=== PATIENT | male | born 1995 | race Caucasian/White ===

== ENCOUNTER 2023-02-11 17:53 | Emergency (ER) | payer BC, MEDICAID, SELFPAY ==
--- NOTE | ~2023-02-11 | XR_ITS ---
EXAM: XR hand RT min 3V DATE: 02/11/2023 19:37 HISTORY: 3rd digit flexor tenosynovitis . COMPARISON: None available. FINDINGS: Normal mineralization. No fracture or dislocation. No lytic or blastic lesion. Joint space s are maintained. No erosion or periosteal change. Soft tissue swelling over the third digit. IMPRESSION: No acute osseous finding in the right hand. Reviewed, dictated and finalized at location K.
[2023-02-11 18:06] VITALS: BP 145/84; PULSE 120; RESP 18; TEMP 36.9; O2SAT 100
[2023-02-11] MEDS: SODIUM CHLORIDE 0.9% IV 2,000 ML 999 ML IV CONT (20:02)
[2023-02-11] MEDS: AMPICILLIN SULB 3 GM/NS 100 ML 3 GM/100 ML VIAL IVPB (20:02)
--- NOTE | 2023-02-11 20:03 | ED.GENADULT ---
HPI - General Adult General Chief complaint: Extremity Problem,Nontraumatic Stated complaint: right middle finger swelling Time Seen by Provider: 02/11/23 18:58 History of Present Illness HPI narrative: This is a 28-year-old IV fentanyl user presenting ED with a swollen digit. Patient injected fentanyl into his 3rd digit on the right hand approximately 5 days ago. Since then he has had significant swelling, discoloration and pain in the digit. He denies fever chills nausea vomiting or diarrhea. Patient is a current fentanyl user and goes through withdrawal. Related Data Allergies Allergy/AdvReac Type Severity Reaction Status Date / Time sulfamethoxazole Allergy Verified 09/16/12 12:45 trimethoprim Allergy Verified 09/16/12 12:45 [facility] Past Medical History Medical History IV drug abuse Opiate abuse, continuous Exam Narrative: APPEARANCE: No apparent distress. Head: atraumatic. EYES: EOMI, NOSE: Atraumatic NECK: Trachea midline RESPIRATORY: No increased rate of breathing CARDIOVASCULAR: RRR, ABDOMINAL: Non-distended MUSCULOSKELETAl: Focal exam of the right extremity reveals diffuse of form 3rd digit with dusky discoloration and pain on both flexion and extension. Cap refills greater than 3 seconds. Sensation light touch is decreased. NEURO: Alert. Moving 4/4 extremities SKIN:: Warm, dry. Normal color PSYCHIATRIC: Normal affect Course Vital Signs Vital signs: Vital Signs Temperature 98.4 F 02/11/23 18:06 Pulse Rate 120 H 02/11/23 18:06 Respiratory Rate 18 02/11/23 18:06 Blood Pressure 145/84 H 02/11/23 18:06 Pulse Oximetry 100 02/11/23 18:06 Oxygen Delivery Room Air 02/11/23 18:06 Temperature 98.4 F 02/11/23 18:06 Pulse Rate 120 H 02/11/23 18:06 Respiratory Rate 18 02/11/23 18:06 Blood Pressure 145/84 H 02/11/23 18:06 Pulse Oximetry 100 02/11/23 18:06 Oxygen Delivery Room Air 02/11/23 18:06 Medical Decision Making [facility] Narrative Medical decision making narrative: -Presentation: 28-year-old IV drug user presenting with a swollen dusky digit 5 days after injecting fentanyl -DDX includes but is not limited to: flexor tenosynovitis, soft tissue infection of the hand -Co-morbidities complicating care: IV drug use withdrawal symptoms -Social determinants of health: patient works in retail, 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 Hand x-ray showed soft tissue swelling. -Discussion of Management/Consultants: Dr. Pabon - Plastics, Dr. Valverde Hospitalist -Dx tests considered but not ordered: Lopez -Procedures: -Interventions: Vancomycin, ampicillin/sulbactam, [place] 5 mg x 2, 1 mg Ativan -Shared decision making / Disposition: patient was evaluated by Dr. Pabon. This time patient does not need emergent surgery. We offered admission for IV antibiotics and reassessment morning but the patient declined. He is concerned he will go in withdrawal. Patient will be given oral antibiotics and discharged with hand follow-up. -RX Augmentin, Doxycycline Vital Signs Vital Signs: Vital Signs Temperature 98.4 F 02/11/23 18:06 Pulse Rate 120 H 02/11/23 18:06 Respiratory Rate 18 02/11/23 18:06 Blood Pressure 145/84 H 02/11/23 18:06 Pulse Oximetry 100 02/11/23 18:06 Oxygen Delivery Room Air 02/11/23 18:06 Temperature 98.4 F 02/11/23 18:06 Pulse Rate 120 H 02/11/23 18:06 Respiratory Rate 18 02/11/23 18:06 Blood Pressure 145/84 H 02/11/23 18:06 Pulse Oximetry 100 02/11/23 18:06 Oxygen Delivery Room Air 02/11/23 18:06 Lab Data 02/11/23 20:06 02/11/23 20:06 Labs: Lab Results 02/11/23 Range/Units 20:06 WBC 9.0 (4.5-10.0) K/mm3 RBC 4.12 L (4.6-6.20) M/mm3 Hgb 12.3 L (14.0-18.0) g/dL Hct 37.7 L (42.
[2023-02-11 20:14] LABS: Basophils Percent Auto 0.3 % (0.2-1.2); Eosinophils Absolute Auto 0.1 K/mm3 (0-0.3); Eosinophils Percent Auto 0.7 % (0-4.4); Hematocrit 37.7 % (42.0-52.0); Hemoglobin 12.3 g/dL (14.0-18.0); Immature Granulocyte Absolute 0.02 K/mm3 (0.00-0.031); Immature Granulocyte Percent A 0.2 % (0-0.5); Lymphocytes Absolute Auto 1.16 K/mm3 (0.9-3.2); Lymphocytes Percent Auto 12.9 % (18.3-44.2); Mean Corpuscular HGB Conc 32.6 g/dl (32-36); Mean Corpuscular Hemoglobin 29.9 pg (26-34); Mean Corpuscular Volume 91.5 fl (80-100); Mean Platelet Volume 10.1 fl (7.4-10.4); Monocytes Absolute Auto 0.9 K/mm3 (0.1-0.6); Monocytes Percent Auto 10.4 % (2.6-8.5); Neutrophils Absolute Auto 6.8 K/mm3 (1.3-6.7); Neutrophils Percent Auto 75.5 % (45.5-73.1); Platelet Count Result 273 k/mm3 (150-375); Red Blood Count 4.12 M/mm3 (4.6-6.20); Red Cell Distribution Width 12.5 % (11.5-14.5)
[2023-02-11] MEDS: LORazepam (*CRX) 1 MG TABLET PO (20:20)
[2023-02-11] MEDS: HYDROcodone/acetaminophen (*CRX) 5-325 MG TABLET 2 TAB PO (20:21)
[2023-02-11 20:24] LABS: Lactic Acid Reflex 1.2 mmol/L (0.7-2.0)
[2023-02-11 21:00] VITALS: BP 140/87; PULSE 80; RESP 16; O2SAT 100
--- NOTE | 2023-02-11 21:00 | PM.IMCN ---
Assessment and Plan Assessment and plan (1) Discoloration of skin of finger: Code(s): L81.9 - Disorder of pigmentation, unspecified Status: Acute (2) Opiate abuse, continuous: Code(s): F11.10 - Opioid abuse, uncomplicated Status: Acute (3) IV drug abuse: Code(s): F19.10 - Other psychoactive substance abuse, uncomplicated Status: Acute Plan I was asked to see the patient in the ER and evaluate. The patient has discoloration and cool appearance to the middle finger of the right hand. Dr. Guerra was consulted by the ER provider in came to evaluate the patient. He feels patient's finger injury is due to probable arterial occlusion to some of the smaller vessels that the are in the distal finger that the patient likely accidentally injected into when he was trying to get high. He recommended the patient is a be placed on antibiotic therapy to also cover for possible infection. However patient is afebrile and does not have a white count. However the patient decided that he was going to leave the hospital. He was given oral antibiotics by the ER provider with Augmentin and doxy cyclin. The patient was encouraged to follow-up as outpatient. Patient verbalized understanding. The importance of cessation of opiate use was discussed with the patient. He states that he has actually underwent inpatient detox with IV sedation and such over a year ago and had a relapse about 7 months ago. He states that he is consciously trying to stop his drug use. He does report that he uses clean needles. However he a already has hepatitis C from his more risky behaviors when he was young. He does admit to also of smoking/snorted methamphetamines and or snorting cocaine on occasion. The importance of tobacco cessation was discussed with the patient as well. However this is not as important in the acute setting as is the cessation of opiate abuse. HPI Data of Consult Consult date: 02/12/23 Requesting Physician: Dr. Rogel Primary Care Provider: Nubia Segovia, Consult Narrative Narrative: Glenn Tesfaye is a 28 year old male with a past medical history of chronic IV drug use who presents to the ER due to right middle finger pain. The patient routinely index fentanyl 3 times a day. He tried to inject into the side of his finger about a week ago and had a small area of bruising. The next time he tried to inject the next day he went more proximal to his prior area and after he injected the area they entire finger from that point towards the tip had turned white. Over the next day and half to 2 days the finger turned purple was cold and painful. He was able to move the finger but it was swollen and stiff. He could extend the finger fully. He denies any fevers or chills. He denies any nausea or vomiting. He reports that he does not not injected get high anymore he injects just so he does not withdrawal. He reports that pain in the finger is 8/10 in intensity and is at dull aching throbbing but. He has never had a history of bloodstream infections, abscesses or endocarditis. He does have hepatitis C due to his prior drug use. Review of Systems Review of Systems: 12 systems were reviewed with pertinent positives and negatives per HPI. Except as documented in the HPI, all other systems were reviewed and are negative. He does tend towards having constipation with his chronic opiate use. He is currently feeling anxious and restless because it is about time for him to give himself another injection of opiates. [facility] Past Medical History Medical History (Updated 02/12/23 @ 07:01 by Meme Valverde DO) Hepatitis C IV drug abuse Opiate abuse, continuous Surgical History Surgical History (Updated 02/12/23 @ 07:01 by Meme Valverde DO) History of tonsillectomy and adenoidectomy History of tympanostomy tube placement Family History Family History (Updated 02/12/23 @ 07:02 by Meme Valverde DO)
--- NOTE | 2023-02-11 21:48 | WPDCN ---
Assessment and Plan Assessment and plan (1) Finger infection: Code(s): L08.9 - Local infection of the skin and subcutaneous tissue, unspecified Status: Acute Assessment and Plan: This is a 5-day-old self injection injury. There may be cellulitis causing the swelling and tenderness though there is no erythema. It appears there is some vascular compromise with venous congestion, possibly due to thrombosis. The skin, while purple in many areas, has not turned necrotic in the past 5 days. The patient does not show evidence of deep space infection. Recommend admission for IV antibiotics and re-evaluation in the morning. NPO after midnight If the patient goes AMA I would suggest seeing if he would take a prescription for antibiotics. HPI Data of Consult Date/Time: 02/11/23 21:48 Primary Care Provider: Nubia Segovia, Consult Narrative Reason for consult: Self injection injury to right iddle finger. Narrative: Glenn Tesfaye is a 28 year old male IV drug abuser who presents with pain and mottling of the right 3rd finger. he states that he injected the radial aspect of the middle phalanx with fentanyl Proximally 5 days ago. The finger has become mottled and tender. He says he injected himself a day or so before that in the same finger the similar area need already developed some purple mottling from that injection attempt. He admits to having some trouble accessing an appropriate vessel. he thinks the finger may have been a little darker in color a couple of days ago. He seems fairly comfortable as I interview in the emergency room. He is able the flex the finger about [address] his palm. Each joint seems to work equally well. He has full extension. The nail bed which is a blue espino color does devon easily with gentle finger pressure to the plate. The pad also blanches. The finger is not hot, there is no erythema, he is not tender to direct pressure over the flexor tendon of the proximal phalanx. . He states that he as had a history injected in his toes previously is familiar with the pain IV can have during this process. He says on this occasion he had to injected very slowly because of the pain. The white count is 9, CRP is pending, blood cultures pending, x-ray shows no foreign body or destructive process. The patient is receiving IV antibiotics as I speak to him. He started discussion about allowing him to be discharged and he would promise to show up in the morning. I told him he was free to go AMA if he wanted to and he could just show up tomorrow if he felt he still needed help. I explained this does not make it any easier to help him. He said he appreciated our help and did not want to make it harder. I told him I did not believe he needed any surgery tonight but that we would keep him NPO overnight in case we wanted to do something in the morning. Review of Systems Review of Systems: All systems reviewed & are unremarkable except as noted in HPI and below PMFSH Past Medical History Medical History IV drug abuse Opiate abuse, continuous Meds Home Medications and Allergies Home Medications Medication Instructions Recorded Confirmed Type amoxicillin 875 mg-potassium 1 tablet PO Q12H #20 tabs 02/11/23 Rx clavulanate 125 mg tablet doxycycline hyclate 100 mg capsule 100 mg PO BID #20 caps 02/11/23 Rx Allergies Allergy/AdvReac Type Severity Reaction Status Date / Time sulfamethoxazole Allergy Verified 09/16/12 12:45 trimethoprim Allergy Verified 09/16/12 12:45 Vital Signs Vital Signs - 24 hr 02/11/23 18:06 Temperature 98.4 F Pulse Rate 120 H Respiratory Rate 18 Blood Pressure 145/84 H Pulse Oximetry 100 Oxygen Delivery Room Air Exam Narrative: As above. Results Labs 02/11/23 20:06 02/11/23 20:06 Labs: Short CBC 01/22
[2023-02-11 22:49] VITALS: BP 143/84; PULSE 85; RESP 15; TEMP 37.3; O2SAT 100
[2023-02-11 22:59] LABS: CRP 2.6 mg/dL (<1.0)
[2023-02-11 23:26] LABS: Anion Gap 11 mmol/L (8-16); Blood Urea Nitrogen 16 mg/dL (9-20); Calcium 9.7 mg/dL (8.4-10.2); Carbon Dioxide 27 mmol/L (22-30); Chloride 100 mmol/L (98-107); Estimated CRCL calculation 171 ml/min; Estimated Glomerular Filt Rate > 60; Glucose 103 mg/dL (65-110); Potassium 4.5 mmol/L (3.4-5.0); Sodium 138 mmol/L (137-145)
[2023-02-11 23:50] LABS: Erythrocyte Sedimentation Rate 18 mm/hr (0-20)
== END 2023-02-11 22:50 | disposition home or self-care (01) ==
PROVIDERS: Emergency Provider Emergency Medicine; PCP Family Medicine
DX: F11.10 Opioid abuse, uncomplicated (principal); L08.9 Local infection of the skin and subcutaneous tissue, unspecified; M79.89 Other specified soft tissue disorders
CPT/HCPCS: 36415; 73130; 80048; 83605; 85025; 85652; 86140; 87040; 96365; 96366; 96368; 99284; A9270; J0295; J3370; J7030

== ENCOUNTER 2023-02-15 22:03 | Emergency (ER) | payer BC, MEDICAID, SELFPAY ==
--- NOTE | ~2023-02-15 | XR_ITS ---
PA, oblique, and lateral views of the right third finger CLINICAL HISTORY: Dislocation, swelling COMPARISON: 02/11/2023 FINDINGS: No fracture or dislocation seen. Osseous alignment is anatomic. Joint spaces are preserved. There is probable mild diffuse soft tissue swelling of the third digit. IMPRESSION: No osseous or articular abnormality. Probable diffuse soft tissue swelling of the third digit, nonspecific. Reviewed, dictated and finalized at location .
[2023-02-15 22:11] VITALS: BP 147/101; PULSE 132; RESP 17; TEMP 36.7; O2SAT 99
--- NOTE | 2023-02-16 00:14 | ED.UPPEXIN ---
HPI - Extremity Injury (Upper) General Chief Complaint: Extremity Injury, Upper Stated Complaint: finger swelling and bruising Time Seen by Provider: 02/15/23 23:57 Source: patient Mode of arrival: ambulatory Limitations: no limitations History of Present Illness HPI narrative: This is a 28 year old male that presents to the ER for right third finger pain and swelling. Ongoing over the last week and a half. Reports he injected Fentanyl into his finger. Reports extreme pain during injection and numbness and discoloration in the finger immediately after. He was evaluated in our ER 4 days ago. Plan was for admission for IV antibiotics and evaluation by Hand surgery. Patient ended up signing out AMA. He presents again tonight for evaluation due to persistent discoloration and pain. Reports decreased range of motion due to pain. Denies numbness. Related Data Allergies Allergy/AdvReac Type Severity Reaction Status Date / Time sulfamethoxazole Allergy Verified 09/16/12 12:45 trimethoprim Allergy Verified 09/16/12 12:45 Review of Systems Review of Systems: CONSTITUTIONAL: Denies fever SKIN: Reports discoloration and swelling MUSCULOSKELETAL: Reports joint pain, and myalgia. NEUROLOGIC: Denies numbness All systems reviewed & are unremarkable except as noted in HPI and below PMFSH Past Medical History Medical History (Updated 02/16/23 @ 00:45 by Yadira Mares PA-C) Hepatitis C IV drug abuse Opiate abuse, continuous Surgical History Surgical History (Updated 02/12/23 @ 07:01 by Meme Valverde DO) History of tonsillectomy and adenoidectomy History of tympanostomy tube placement Family History Family History (Updated 02/12/23 @ 07:02 by Meme Valverde DO) Sibling Hepatitis C IV drug abuse Social History Social History (Updated 02/12/23 @ 07:54 by Meme Valverde DO) Social History: He currently lives and works and [place]. 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 He comes to the [facility] to see is son on a daily basis. He has used IV drugs including heroin and fentanyl he has smoked a pack of cigarettes per day since he was 26 years old. He has been the present twice once for a couple of years and most recently was in [facility] for 6 years. Exam Narrative: GENERAL: Well-appearing, well-nourished, and in no acute distress. HEAD: Normocephalic, atraumatic. EYES: EOMI. CHEST: No respiratory distress. HEART: Tachycardic. Normal peripheral pulses. EXTREMITIES: Decreased active range of motion in the right 3rd finger with severe swelling noted. The distal phalanx is cold. The finger is purple. Normal sensation SKIN: Warm, dry, no rash. NEURO: No focal deficits. Alert and oriented x3. PSYCH: Normal mood and affect Course Course Emergency Course: Patient has decided he wants to leave AMA. He promises he will come back in the morning for evaluation by Hand surgery Vital Signs Vital signs: Vital Signs Temperature 98.0 F 02/15/23 22:11 Pulse Rate 132 H 02/15/23 22:11 Respiratory Rate 17 02/15/23 22:11 Blood Pressure 147/101 H 02/15/23 22:11 Pulse Oximetry 99 02/15/23 22:11 Oxygen Delivery Room Air 02/15/23 22:11 Temperature 98.0 F 02/15/23 22:11 Pulse Rate 119 H 02/16/23 00:30 Respiratory Rate 14 02/16/23 00:30 Blood Pressure 115/77 02/16/23 00:30 Pulse Oximetry 100 02/16/23 00:30 Oxygen Delivery Room Air 02/15/23 22:11 MDM - Extremity Injury (Upper) MDM Narrative Medical decision making narrative: Patient presents to the ER for discoloration and pain to the right third finger. History of IV drug abuse. Patient injected fentanyl into this finger a week and half ago. Severe swelling and purple discoloration of the finger noted. Decreased range of motion due to pain. His distal phalanx is cold. Patient was evaluated in our ER 4 days ago for same and plan was for admission for
[2023-02-16 00:30] VITALS: BP 115/77; PULSE 119; RESP 14; O2SAT 100
== END 2023-02-16 00:52 | disposition left against medical advice (07) ==
PROVIDERS: Emergency Provider Physician Assistant; PCP Family Medicine
DX: F11.10 Opioid abuse, uncomplicated (principal); R22.31 Localized swelling, mass and lump, right upper limb
CPT/HCPCS: 73140; 99283

== ENCOUNTER 2023-02-16 17:41 | Observation (INO) | payer BC, MEDICAID, SELFPAY ==
--- NOTE | ~2023-02-16 | US_ITS ---
US soft tissue UE RT 02/16/2023 22:18 Indication: Finger swelling and pain after recent needlestick Procedure: High-resolution Limited ultrasound of the right middle finger Comparison: No prior studies for comparison. Findings: Normal heterogeneous soft tissues without focal mass or fluid collections. No evidence for abscess. Impression: 1: Normal soft tissue ultrasound of the right third finger. No abscess identified. Reviewed, dictated and finalized at location A. Impression: 1: Normal soft tissue ultrasound of the right third finger. No abscess identifi ed.
[2023-02-16 18:08] VITALS: BP 140/89; PULSE 108; RESP 20; TEMP 36.6; O2SAT 100
--- NOTE | 2023-02-16 20:12 | ED.EXTPRO ---
HPI - Extremity Problem General Chief complaint: Extremity Problem,Nontraumatic Stated complaint: R middle finger black Time Seen by Provider: 02/16/23 18:27 Source: patient Mode of arrival: ambulatory Limitations: no limitations History of Present Illness HPI Narrative: This is a 28 year old male that presents to the ER for right third finger swelling and pain. He injected Fentanyl into the finger about a week and a half ago. He has had swelling and purple discoloration to the finger since. He has been evaluated in our ER for this twice and signed out AMA. He reports he is taking his antibiotics as prescribed. Denies numbness. Related Data Allergies Allergy/AdvReac Type Severity Reaction Status Date / Time sulfamethoxazole Allergy Verified 09/16/12 12:45 trimethoprim Allergy Verified 09/16/12 12:45 Review of Systems Review of Systems: CONSTITUTIONAL: Denies fever SKIN: Reports discoloration MUSCULOSKELETAL: Reports joint pain, and myalgia. NEUROLOGIC: Denies numbness All systems reviewed & are unremarkable except as noted in HPI and below PMFSH Past Medical History Medical History (Updated 02/16/23 @ 22:40 by Yadira Mares PA-C) Hepatitis C IV drug abuse Opiate abuse, continuous Surgical History Surgical History (Updated 02/12/23 @ 07:01 by Meme Valverde DO) History of tonsillectomy and adenoidectomy History of tympanostomy tube placement Family History Family History (Updated 02/12/23 @ 07:02 by eMme Valverde DO) Sibling Hepatitis C IV drug abuse Social History Social History (Updated 02/12/23 @ 07:54 by Meme Valverde DO) Social History: He currently lives and works and [place]. 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 He comes to the [facility] to see is son on a daily basis. He has used IV drugs including heroin and fentanyl he has smoked a pack of cigarettes per day since he was 26 years old. He has been the present twice once for a couple of years and most recently was in [facility] for 6 years. Exam Narrative: GENERAL: Well-appearing, well-nourished, and in no acute distress. HEAD: Normocephalic, atraumatic. EYES: EOMI. CHEST: No respiratory distress. HEART: Tachycardic. Normal peripheral pulses. EXTREMITIES: Decreased active range of motion in the right 3rd finger with severe swelling noted.? The distal phalanx is cold.? The finger is purple. Normal sensation SKIN: Warm, dry, no rash. NEURO: No focal deficits. Alert and oriented x3. PSYCH: Normal mood and affect Course Course Emergency Course: Patient was updated on workup and agrees with admission Consultations Consultation #1: Spoke with Dr. Palacios about patient and workup who will consult. Recommends Vanc/Zosyn Date: 02/16/23 Consultation #2: Spoke with hospitalist who accepts admission Date: 02/16/23 Vital Signs Vital signs: Vital Signs Temperature 97.9 F 02/16/23 18:08 Pulse Rate 108 H 02/16/23 18:08 Respiratory Rate 20 02/16/23 18:08 Blood Pressure 140/89 02/16/23 18:08 Pulse Oximetry 100 02/16/23 18:08 Oxygen Delivery Room Air 02/16/23 18:08 Temperature 98.2 F 02/16/23 22:39 Pulse Rate 84 02/16/23 22:39 Respiratory Rate 18 02/16/23 22:39 Blood Pressure 147/93 H 02/16/23 22:39 Pulse Oximetry 96 02/16/23 22:39 Oxygen Delivery Room Air 02/16/23 18:08 MDM - Extremity (Nontraumatic) MDM Narrative Medical decision making narrative: Patient presents to the emergency department for right 3rd finger swelling and pain after injecting fentanyl into his finger. His finger is swollen and discolored. His distal phalanx is cold. He does have intact sensation. He is afebrile and nontoxic appearing. CBC without leukocytosis. CRP mildly elevated. Ultrasound soft tissue without evidence of abscess in the finger. Spoke with Dr. Palacios about patient and workup who will consult. Recommends Vanc/Zosyn.
[2023-02-16 20:39] LABS: Basophils Absolute Auto 0.1 K/mm3 (0.0-0.1); Basophils Percent Auto 0.8 % (0.2-1.2); Eosinophils Absolute Auto 0.5 K/mm3 (0-0.3); Eosinophils Percent Auto 5.2 % (0-4.4); Hematocrit 42.5 % (42.0-52.0); Hemoglobin 13.1 g/dL (14.0-18.0); Immature Granulocyte Absolute 0.03 K/mm3 (0.00-0.031); Immature Granulocyte Percent A 0.3 % (0-0.5); Immature Platelet Fraction Pct 4.3 % (0.9-11.2); Lymphocytes Absolute Auto 1.66 K/mm3 (0.9-3.2); Lymphocytes Percent Auto 19.3 % (18.3-44.2); Mean Corpuscular HGB Conc 30.8 g/dl (32-36); Mean Corpuscular Hemoglobin 29.5 pg (26-34); Mean Corpuscular Volume 95.7 fl (80-100); Mean Platelet Volume 9.9 fl (7.4-10.4); Monocytes Absolute Auto 0.9 K/mm3 (0.1-0.6); Monocytes Percent Auto 10.2 % (2.6-8.5); Neutrophils Absolute Auto 5.5 K/mm3 (1.3-6.7); Neutrophils Percent Auto 64.2 % (45.5-73.1); Platelet Count Result 301 k/mm3 (150-375); Red Blood Count 4.44 M/mm3 (4.6-6.20); Red Cell Distribution Width 12.4 % (11.5-14.5); White Blood Count 8.6 K/mm3 (4.5-10.0)
[2023-02-16 20:55] LABS: Platelet Estimate Adequate (Adequate)
[2023-02-16 20:56] LABS: Anion Gap 9 mmol/L (8-16); Blood Urea Nitrogen 16 mg/dL (9-20); CRP 2.2 mg/dL (<1.0); Calcium 9.6 mg/dL (8.4-10.2); Carbon Dioxide 28 mmol/L (22-30); Chloride 102 mmol/L (98-107); Estimated CRCL calculation 201 ml/min; Estimated Glomerular Filt Rate > 60; Glucose 138 mg/dL (65-110); Potassium 4.2 mmol/L (3.4-5.0); Schistocytes None Seen (NORMAL); Sodium 139 mmol/L (137-145)
[2023-02-16 21:13] LABS: Erythrocyte Sedimentation Rate 16 mm/hr (0-20)
--- NOTE | 2023-02-16 21:46 | PM.IMHP ---
H&P: HPI History of Present Illness Date/Time: 02/16/23 21:46 Chief Complaint: Right hand cellulitis Narrative: This is a 28-year-old male with past medical history significant for IV drug use uses fentanyl and cocaine, tobacco use. Patient presents to the emergency room due to right swelling, pain, after use of fentanyl in the 3rd finger. Patient denies any chills or fevers, no nausea no vomiting no diarrhea no abdominal pain. Preliminary workup was significant for C-reactive protein of 2.2. Patient is been admitted for further evaluation management and treatment. EXAM:? XR hand RT min 3V DATE: 02/11/2023 19:37 HISTORY: 3rd digit flexor tenosynovitis . COMPARISON:? None available. FINDINGS:? Normal mineralization. No fracture or dislocation. No lytic or blastic lesion. Joint spaces are maintained. No erosion or periosteal change. Soft tissue swelling over the third digit. IMPRESSION: No acute osseous finding in the right hand. CLINICAL HISTORY: Dislocation, swelling COMPARISON: 02/11/2023 FINDINGS: No fracture or dislocation seen. Osseous alignment is anatomic. Joint spaces are preserved. There is probable mild diffuse soft tissue swelling of the third digit. IMPRESSION: No osseous or articular abnormality. Probable diffuse soft tissue swelling of the third digit, nonspecific. US soft tissue UE RT 02/16/2023 22:18 Indication: Finger swelling and pain after recent needlestick Procedure: High-resolution Limited ultrasound of the right middle finger Comparison: No prior studies for comparison. Findings: Normal heterogeneous soft tissues without focal mass or fluid collections. No evidence for abscess. Impression: 1: Normal soft tissue ultrasound of the right third finger. No abscess identified. Review of Systems Review of Systems: Right hand cellulitis swelling pain discoloration warmth Constitutional: Constitutional: Denies chills, Denies fatigue, Denies fever(s) and Denies night sweats Eyes: Eyes: Denies change in vision ENT: Denies dysphagia and Denies odynophagia Cardiovascular: Cardiovascular: Denies chest pain at rest, Denies radiating jaw, neck or arm pain, Denies palpitations, Denies dyspnea on exertion and Denies orthopnea Respiratory: Respiratory: Denies chest congestion, Denies cough and Denies excessive phlegm production Gastrointestinal: Gastrointestinal: Denies abdominal pain, Denies constipation, Denies GI cramping, Denies dyspepsia, Denies heartburn, Denies diarrhea, Denies nausea and Denies vomiting Genitourinary: Genitourinary: Denies dysuria and Denies flank pain Musculoskeletal: Musculoskeletal: Reports deformity, Reports arthralgias and Reports joint swelling (3rd right finger) Integumentary/Breasts: Skin/Breast: Reports change in pigmentation, Denies rash, Reports skin pain and Reports skin swelling (3rd right finger) Neurologic: Denies focal weakness and Denies Sensory deficit (Neuro) Psychiatric: Psychiatric: Reports no additional psychiatric complaints and Reports as per HPI Endocrine: Endocrine: Denies cold intolerance, Denies fatigue, Denies heat intolerance, Denies polyphagia, Denies polyuria and Denies palpitations Hematologic/Lymphatic: Hematologic/Lymphatic: Reports no additional hematologic/lymphatic complaints and Reports as per HPI Allergic/Immunologic: Allergic/Immunologic: Reports no additional allergic/immunologic complaints and Reports as per HPI PMFSH Past Medical History Medical History (Updated 02/17/23 @ 03:19 by Raffi Erickson MD) Hepatitis C IV drug abuse Opiate abuse, continuous Surgical History Surgical History (Updated 02/12/23 @ 07:01 by Meme Valverde DO) History of tonsillectomy and adenoidectomy History of tympanostomy tube placement Family History Family History (Updated 02/12/23 @ 07:02 by Meme Valverde DO) Sibling Hepatitis C IV drug abuse Social History Social History (Updated 02/12/23 @ 07:54 by
[2023-02-16] MEDS: VANCOMYCIN 1,250 MG/NS 250 ML 1,250 MG/250 ML BAG 166.67 MG IVPB (22:02)
[2023-02-16] MEDS: PIPERACILLN/TAZ 3.375GM/NS50ML 3.375 GM/50 ML BAG IVPB (22:02)
[2023-02-16 22:39] VITALS: BP 147/93; PULSE 84; RESP 18; TEMP 36.8; O2SAT 96
--- NOTE | 2023-02-16 22:48 | ADMGEN ---
This patient, Glenn Tesfaye, was admitted to [facility] Surg Room 333-01 at 2248. Patient/family oriented to hospital policies and general routines including ID bracelet, bed and alarms, visiting hours, pain management, procedures, bathroom and other care routines, personal items, smoking policy, room service/diet, and visiting hours. Information on how to activate the Rapid Response Team has been discussed. Patient/Family are encouraged to report perceived risks to care and to ask questions if they do not understand what they are told or what they should do.
[2023-02-16 22:50] VITALS: BP 135/76; PULSE 79; RESP 16; TEMP 36.4; O2SAT 100; BMI 25.3
[2023-02-17] MEDS: VANCOMYCIN 1,000 MG/NS 250 ML 1,000 MG/250 ML BAG 250 MG IVPB (00:03)
--- NOTE | 2023-02-17 08:15 | WPDCN ---
HPI Data of Consult Date/Time: 02/17/23 08:15 Requesting Physician: Raffi Erickson MD Primary Care Provider: Nubia Segovia, Consult Narrative Narrative: was called last night regarding finger cellulitis. discussed admission for IV abx. attempted to see patient at 8AM but patient left AMA during the night. [facility] Past Medical History Medical History (Updated 02/17/23 @ 03:19 by Raffi Erickson MD) Hepatitis C IV drug abuse Opiate abuse, continuous Surgical History Surgical History (Updated 02/12/23 @ 07:01 by Meme Valverde DO) History of tonsillectomy and adenoidectomy History of tympanostomy tube placement Family History Family History (Updated 02/12/23 @ 07:02 by Meme Valverde DO) Sibling Hepatitis C IV drug abuse Social History Social History (Updated 02/12/23 @ 07:54 by Meme Valverde DO) Social History: He currently lives [place] works and [place]. 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 He comes to the [facility] to see is son on a daily basis. He has used IV drugs including heroin and fentanyl he has smoked a pack of cigarettes per day since he was 26 years old. He has been the present twice once for a couple of years and most recently was in long term for 6 years. Smoking packs per day: 1 Smoking cigarettes per day: 20.0 Smoking status: Current every day smoker Tobacco type: cigarettes Alcohol intake: former Substance use: current Substance use type: IV drugs Lack of Transportation: No Lack of Food: Never True Current Housing: I Have Housing Concerned About Future Housing: No Difficulty Paying Gas/Electric Bills: No Difficulty Paying for Meds: No Currently Unemployed: No Education: High School Diploma/GED Difficulty w/ Childcare or Family Care: No Spiritual care concerns: No Meds Home Medications and Allergies Home Medications Medication Instructions Recorded Confirmed Type amoxicillin 875 mg-potassium 1 tablet PO Q12H #20 tabs 02/11/23 02/16/23 Rx clavulanate 125 mg tablet doxycycline hyclate 100 mg capsule 100 mg PO BID #20 caps 02/11/23 02/16/23 Rx Allergies Allergy/AdvReac Type Severity Reaction Status Date / Time sulfamethoxazole Allergy Verified 09/16/12 12:45 trimethoprim Allergy Verified 09/16/12 12:45 Vital Signs Vital Signs - 24 hr 02/16/23 18:08 02/16/23 22:39 02/16/23 22:50 Temperature 36.6 C 36.8 C 36.4 C Pulse Rate 108 H 84 79 Respiratory Rate 20 18 16 Blood Pressure 140/89 147/93 H 135/76 Pulse Oximetry 100 96 100 Oxygen Delivery Room Air 02/17/23 00:16 Temperature Pulse Rate Respiratory Rate Blood Pressure Pulse Oximetry Oxygen Delivery Room Air Results Labs 02/16/23 20:26 02/16/23 20:26 Labs: Short CBC 02/16/23 Range/Units 20:26 WBC 8.6 (4.5-10.0) K/mm3 Hgb 13.1 L (14.0-18.0) g/dL Hct 42.5 (42.0-52.0) % Plt Count 301 (150-375) k/mm3 BMP 02/16/23 20:26 Sodium 139 Potassium 4.2 Chloride 102 Carbon Dioxide 28 BUN 16 Creatinine 0.50 L Glucose 138 H Calcium 9.6
--- NOTE | 2023-03-14 20:00 | PM.EVENT ---
Event Note Event Note Event Note: Patient left AMA I was notified by floor nurse that patient walked out.
== END 2023-02-17 00:48 | disposition left against medical advice (07) ==
LOC: ANHED 18:53 → ANH3MEDSUR 22:10
PROVIDERS: Admitting Provider Internal Medicine; Emergency Provider Physician Assistant; PCP Family Medicine; Visit Provider Internal Medicine
DX: L03.011 Cellulitis of right finger (principal); L81.9 Disorder of pigmentation, unspecified; R00.0 Tachycardia, unspecified; F11.10 Opioid abuse, uncomplicated; B19.20 Unspecified viral hepatitis C without hepatic coma; F17.210 Nicotine dependence, cigarettes, uncomplicated; F19.10 Other psychoactive substance abuse, uncomplicated; Z79.899 Other long term (current) drug therapy; Z81.3 Family history of other psychoactive substance abuse and dependence
CPT/HCPCS: 36415; 76882; 80048; 85025; 85055; 85652; 86140; 87040; 96365; 96375; 96376; 99285; G0378; J2543; J3370